=== PATIENT | male | born 1950 | race Caucasian/White ===

== ENCOUNTER 2019-04-14 21:14 | Emergency (ER) | payer MEDICARE, OTHER, SELFPAY ==
[2019-04-14 21:22] VITALS: BP 155/90; PULSE 92; RESP 22; TEMP 36.4; O2SAT 98; BMI 27.3
--- NOTE | 2019-04-14 21:23 | XRR_ITS ---
PROCEDURE INFORMATION: Exam: XR Chest, 1 View Exam date and time: 04/14/2019 9:27 PM Age: 69 years old Clinical indication: Chest pain; Additional info: Cp TECHNIQUE: Imaging protocol: XR of the chest Views: 1 view. COMPARISON: CR Ribs LEFT w PA Chest [id number] 01/10/2016 9:20 PM FINDINGS: Lungs: Unremarkable. No consolidation. Unchanged multiple tiny calcified granulomas. Pleural space: Unremarkable. No pleural effusion. No pneumothorax. Heart/Mediastinum: Unremarkable. No cardiomegaly. Bones/joints: Unremarkable. XR/XR chest 1V portable [id number] IMPRESSION: No acute findings.
--- NOTE | 2019-04-14 21:27 | ED_ITS ---
Entered by Jina Lewis, acting as scribe for Chanel Rubin MD HPI - Chest Pain General: Chief Complaint: Chest Pain Stated Complaint: chest pain Time Seen by Provider: 04/14/19 21:23 Source: patient Mode of arrival: ambulatory Limitations: no limitations History of Present Illness: HPI narrative: 69 yo m came to the er pov for chest pain. Onset was at 20:00 today. Pt states that he was at home and it hit all of a sudden. Pt states that he has chest pain, sob, pain between his shoulder blades and numbness is his hands. Pt states that he thought that it was heartburn at first but the pain never went away. complaint: chest pain and chest discomfort Onset (ago): hour(s) (2000pm) Prior episodes: Yes Onset: during exertion Pain location: substernal Pain radiation: back (between shoulder blades) Severity: moderate Quality: sharp Relieving factors: nothing Exacerbating factors: nothing Associated symptoms: Reports dyspnea, nausea and vomiting; Deny fever(s) Treatment prior to arrival: none Risk Factors: Thoracic aortic dissection risk factors: none Review of Systems General: Reports: 10 or more systems reviewed and unremarkable except in HPI and below Const: Denies: fever Eyes: Denies: change in vision ENMT: Denies: throat pain Card: Reports: chest pain, shortness of breath on exertion and shortness of breath when lying down Resp: Reports: shortness of breath GI: Reports: nausea and vomiting : Denies: painful urination Musc: Denies: neck pain Skin/Breast: Denies: rash or itching Neuro: Denies: headache Psych: Denies: anxiety Endo: Denies: excessive urination Avni/Lymph: Denies: easy bruising All/Imm: Denies: hives or acute wheezing PFSH ED PFSH: Statuses (acute, chronic, etc) shown below reflect problem list status as previously entered and may not be historically accurate Social History Smoking and tobacco status: never smoked Physical Exam Const: COMMON NORMALS: oriented x3; apparent distress GENERAL APPEARANCE: cooperative ORIENTATION/CONSCIOUSNESS: Yes awake, Yes oriented to person, Yes oriented to place and Yes oriented to time HENMT: COMMON NORMALS: external ears normal and external nose normal HEAD & SCALP: normal to inspection NOSE: external nose normal EXTERNAL EAR: Yes e xternal ears normal MOUTH: oral and palatal mucosa normal THROAT: posterior oropharynx normal Eye: COMMON NORMALS: PERRL and EOMs intact bilaterally PUPIL: Yes PERRL Neck/C-Spine: COMMON NORMALS: full ROM GENERAL: Yes trachea midline Lymph: LYMPHATIC: no lymphadenopathy noted Chest: COMMONS NORMALS: inspection of chest normal Resp: COMMON NORMALS: normal respiratory effort, no retractions and clear to auscultation bilaterally EFFORT & INSPECTION: Yes able to speak in complete sentences AUSCULTATION: clear to auscultation bilaterally, no crackles and no wheezes Cardio: COMMON NORMALS: regular rate and regular rhythm RATE: regular rate RHYTHM: regular rhythm GI: COMMON NORMALS: normal to inspection, nondistended, normoactive bowel sounds and soft to palpation AUSCULTATION: Yes normoactive bowel sounds PALPATION: Yes soft PERCUSSION: normal to percussion : COMMON NORMALS: Yes no CVA tenderness BLADDER/KIDNEY EXAM: Yes no CVA tenderness Back/Pelvis: COMMON NORMALS: no CVA tenderness Extremity: GENERAL: Yes normal exam except as noted Neuro: COMMON NORMALS: oriented x3 SENSORIUM/ORIENTATION: Yes oriented to person, Yes oriented to place and Yes oriented to time CRANIAL NERVES: Yes CN normal except as noted Psych: COMMON NORMALS: mental status grossly normal Skin: COMMON NORMALS: no rashes or lesions noted GENERAL SKIN EXAM: no rashes or lesions noted Course Vital Signs: Vital signs: Vital Signs Temperature 98.1 F 04/14/19 22:12 Pulse Rate 83 04/15/19 00:09 Respiratory Rate 12 04/15/19 00:09 Blood Pressure 150/91 04/15/19 00:09 Pulse Oximetry 94 04/15/19 00:09 MDM - Chest Pain MDM Narrative: Medical decision making narrative: 2233 patient is much more comfortable after pain medicine and nausea medicine. First troponin is within normal limits will wait for second troponin. Chest x-ray is negative, H. pylori is negative as well but I have started him on IV Pepcid. 0039 updated patient on second troponin. Is asymptomatic . I suspect he had esophageal spasm as he described lots of belching just prior to this episode and has felt very bloated. States his PCP recently put him on a medicine for acid that he takes twice a day. Unfortunately unable to see any records from primary care office and patient does not know what medication he is on so I will have him check when he gets home and if he is not on an ant acid or H2 amee needs to start Zantac OTC and follow-up with his primary care doctor. Lab Data: Attestation: I reviewed the patient's lab results. Labs: Lab Results 04/14/19 04/14/19 04/14/19 Range/Units 21:28 21:28 21:28 WBC 6.9 (4.0-10.0) 10^3/ uL RBC 5.93 H (4.1-5.3) 10^6/u L Hgb 16.3 (11.7-16.6) g/dL Hct 50.9 (42.0-52.0) % MCV 85.8 (80-94) fL MCH 27.5 L (28.0-34.0) pg MCHC 32.0 (30.0-36.0) g/dL RDW 12.9 (12.1-15.1) % Plt Count 231 (130-400) 10^3/c mm MPV 9.4 (7.4-10.4) fL Total Counted 100 (0-100) Segmented Neutroph ils 47 % Band Neutrophils 1.0 % Lymphocytes (Manua l) 40 % Monocytes (Manual) 10.0 % Absolute Monocytes 0.7 H (0.1-0.6) 10^3/c mm Eosinophils (Manua l) 2 % Absolute Eosinophi ls 0.1 (0.0-0.7) 10^3/c mm Platelet Estimate Normal (Normal) D-Dimer 0.46 (0-0.59) ug/mIFE U Sodium 136 (136-145) mmol/L Potassium 3.0 L (3.5-5.1) mmol/L Chloride 97 L (98-107) mmol/L Carbon Dioxide 28 (22-29) mmol/L Anion Gap 14.0 (5-19) BUN 18 (8-23) mg/dL Creatinine 1.2 (0.7-1.2) mg/dL GFR Calculation 60.0 L (90-130) mL/min Glucose 163 H (74-106) mg/dL Calcium 10.4 H (8.8-10.2) mg/Dl Total Bilirubin 0.4 (0.15-1.2) mg/dL AST 17 (0-40) U/L ALT 19 (0-41) U/L Alkaline Phosphata se 133 H (40-130) IU/L Troponin T Baselin e (0-15) ng/mL Troponin T 120 Min [place] (0-15) ng/mL Delta Troponin T (0-10) ABS# Total Protein 7.4 (6.6-8.7) g/dL Albumin 4.6 (3.5-5.2) g/dL Globulin 2.8 (1.3-4.6) g/dL Lipase 26 (13-60) U/L H. pylori IgG Anti body (Negative) 04/14/19 04/14/19 04/14/19 Range/Units 21:28 21:28 23:17 WBC (4.0-10.0) 10^3/ uL RBC (4.1-5.3) 10^6/u L Hgb (11.7-16.6) g/dL Hct (42.0-52.0) % MCV (80-94) fL MCH (28.0-34.0) pg MCHC (30.0-36.0) g/dL RDW (12.1-15.1) % Plt Count (130-400) 10^3/c mm MPV (7.4-10.4) fL Total Counted (0-100) Segmented Neutroph ils % Band Neutrophils % Lymphocytes (Manua l) % Monocytes (Manual) % Absolute Monocytes (0.1-0.6) 10^3/c mm Eosinophils (Manua l) % Absolute Eosinophi ls (0.0-0.7) 10^3/c mm Platelet Estimate (Normal) D-Dimer (0-0.59) ug/mIFE U Sodium (136-145) mmol/L Potassium (3.5-5.1) mmol/L Chloride (98-107) mmol/L Carbon Dioxide (22-29) mmol/L Anion Gap (5-19) BUN (8-23) mg/dL Creatinine (0.7-1.2) mg/dL GFR Calculation (90-130) mL/min Glucose (74-106) mg/dL Calcium (8.8-10.2) mg/Dl Total Bilirubin (0.15-1.2) mg/dL AST (0-40) U/L ALT (0-41) U/L Alkaline Phosphata se (40-130) IU/L Troponin T Baselin e 10 (0-15) ng/mL Troponin T 120 Min [place] 8.84 (0-15) ng/mL Delta Troponin T -1.16 L (0-10) ABS# Total Protein (6.6-8.7) g/dL Albumin (3.5-5.2) g/dL Globulin (1.3-4.6) g/dL Lipase (13-60) U/L H. pylori IgG Anti body Negative (Negative) Imaging Data^: CXR: Radiologist's impression: [address] [place] [address] XRay Report Signed Patient: Radames Sherman #: [id number] : 1950Acct#:[id number] Age/Sex: 69 / MADM Date: 04/14/19 Loc: ERRoom/Bed: Attending Dr: Ordering Provider/Ordering MD: Chanel Rubin MD Date of Service: 04/14/19 Procedure(s): XR chest 1V portable [id number] Accession Number(s): [id number] Report Number: [id number] PROCEDURE INFORMATION: Exam: XR Chest, 1 View Exam date and time: 04/14/2019 9:27 PM Age: 69 years old Clinical indication: Chest pain; Additional info: Cp TECHNIQUE: Imaging protocol: XR of the chest Views: 1 view. COMPARISON: CR Ribs LEFT w PA Chest [id number] 01/10/2016 9:20 PM FINDINGS: Lungs: Unremarkable. No consolidation. Unchanged multiple tiny calcified granulomas. Pleural space: Unremarkable. No pleural effusion. No pneumothorax. Heart/Mediastinum: Unremarkable. No cardiomegaly. Bones/joints: Unremarkable. XR/XR chest 1V portable [id number] IMPRESSION: No acute findings. Dictated By:Kirstin Vergara Signed By:Eugenio Vergara Date/Time:04/14/19 1321 EKG Data^: EKG 1: EKG interpretation date: 04/14/19 EKG interpretation time: 21:23 Prior EKG tracings: not available for review Interpretation: Sinus rhythm rate 94 with PVCs. Baseline artifact secondary to patient distress I was present while EKG was being performed. There is no acute ST elevation. EKG 2: Attestation: I personally reviewed and interpreted this EKG as follows: EKG interpretation date: 04/14/19 EKG interpretation time: 23:34 Interpretation: Normal sinus rhythm rate [address] elevation Discharge Plan Discharge Patient Disposition: Home, Self-Care Clinical Impression: Atypical chest pain, Gastritis Condition: Stable Discharge Orders: Discharge Order (Routine); Ordered 04/15/19 Ordered By: Chanel Rubin Referrals: Narinder Tolbert, [Family Provider] - Discharge Diet: Usual diet Discharge Activity: Resume usual activity Patient Instructions: Chest Pain (ED), Diet for Ulcers and Gastritis (ED), Eso phageal Spasm (ED) Activity Restrictions/Additional Instructions: Contact your primary care doctor on Wednesday for follow-up appointment. Let them know that you are in the emergency department. You need to confirm that you are taking a medicine for stomach acid, if you are not start taking Zantac 300 mg twice a day(once in the morning and once at night). Your doctor may also want to do further testing since it sounds like he may have had esophageal spasm at this ED visit. Return to the emergency department if worse at any time. Coding Level of Care Code ED District Superintendent for Chg Fwd Exam Problem Focused The documentation recorded by the Joshua valladares Stephanie Lyn, accurately reflects the service I personally performed and the decisions made by me, Chanel Rubin MD
--- NOTE | 2019-04-14 21:30 | ECG_ITS ---
Measurements Intervals [place] Rate: 94 P: 58 [place]: 161 QRS: 49 QRSD: 88 T: 33 QT: 348 QTc: 435 SINUS RHYTHM WITH OCCASIONAL VENTRICULAR PREMATURE COMPLEXES WITH OCCASIONAL SUP SUPRAVENTRICULAR PREMATURE COMPLEXES INTERPRETATION BASED ON A DEFAULT AGE OF 40 YEARS No previous ECG available for comparison Electronically Signed On 04-15-2019 16:44:08 CERTIFIED CORPORATE TRAVEL EXECUTIVE by Dulce Meza M.D. [id number] f
[2019-04-14 21:32] VITALS: BP 138/113; PULSE 86; RESP 24; O2SAT 99
[2019-04-14 21:38] LABS: Hematocrit 50.9 % (42.0-52.0); Hemoglobin 16.3 g/dL (11.7-16.6); Mean Corpuscular Hemoglobin 27.5 pg (28.0-34.0); Mean Corpuscular Volume 85.8 fL (80-94); Mean Platelet Volume 9.4 fL (7.4-10.4); Platelet Count 231 10^3/cmm (130-400); Red Blood Count 5.93 10^6/uL (4.1-5.3); Red Cell Distribution Width 12.9 % (12.1-15.1); White Blood Count 6.9 10^3/uL (4.0-10.0)
[2019-04-14] MEDS: aspirin 81 mg Chew Tablet 324 MG PO (21:44)
[2019-04-14] MEDS: famotidine 20 mg/2 mL INJ IVP (21:44)
[2019-04-14] MEDS: ondansetron 2 mg/ML SDV 2 mL 4 MG IVP (21:44)
[2019-04-14 21:53] LABS: Alanine Aminotransferase 19 U/L (0-41); Albumin Level 4.6 g/dL (3.5-5.2); Alkaline Phosphatase 133 IU/L (40-130); Aspartate Amino Transferase 17 U/L (0-40); Blood Urea Nitrogen 18 mg/dL (8-23); Calcium 10.4 mg/Dl (8.8-10.2); Carbon Dioxide 28 mmol/L (22-29); Chloride 97 mmol/L (98-107); Globulin 2.8 g/dL (1.3-4.6); Glucose 163 mg/dL (74-106); Lipase 26 U/L (13-60); Sodium 136 mmol/L (136-145); Total Bilirubin 0.4 mg/dL (0.15-1.2); Total Protein 7.4 g/dL (6.6-8.7)
[2019-04-14 21:54] LABS: D Dimer 0.46 ug/mIFEU (0-0.59)
[2019-04-14 21:55] LABS: H. Pylori IgG Antibody Negative (Negative)
[2019-04-14 22:03] VITALS: RESP 18
[2019-04-14] MEDS: morphine 4 mg/mL SDV 1 mL IVP (22:03)
[2019-04-14 22:12] VITALS: BP 180/92; PULSE 63; RESP 16; TEMP 36.7
[2019-04-14 22:12] LABS: Troponin(5th) Baseline 10 ng/mL (0-15)
[2019-04-14 22:26] LABS: Absolute Eosinophils 0.1 10^3/cmm (0.0-0.7); Absolute Segmented Neutrophil 3.2 10/cmm (1.6-7.1); Band Neutrophils Absolute 0.1 10^3/cmm (0.0-1.2); Eosinophils 2 %; Lymphocytes 40 %; Monocytes Absolute 0.7 10^3/cmm (0.1-0.6); Segmented Neutrophils 47 %; Total Cells Counted 100 (0-100)
[2019-04-14 22:27] LABS: Platelet Estimate Normal (Normal)
[2019-04-14 23:18] VITALS: BP 172/89; PULSE 75; RESP 13
--- NOTE | 2019-04-14 23:30 | ECG_ITS ---
Measurements Intervals [place] Rate: 61 P: 43 [place]: 170 QRS: 45 QRSD: 93 T: 12 QT: 410 QTc: 416 SINUS RHYTHM No previous ECG available for comparison Electronically Signed On 04-15-2019 16:51:15 PRINCIPAL LAW CLERK by Dulce Meza M.D. [id number]
[2019-04-14 23:45] LABS: Troponin 5 2HR 8.84 ng/mL (0-15)
[2019-04-15] LABS: Troponin 5 2HR Delta -1.16 ABS# (0-10)
[2019-04-15 00:09] VITALS: BP 150/91; PULSE 83; RESP 12; O2SAT 94
[2019-04-15 00:55] VITALS: BP 149/92; PULSE 96; RESP 18; O2SAT 95
== END 2019-04-15 00:56 | disposition home or self-care (01) ==
PROVIDERS: Emergency Provider Emergency Medicine; Family Provider Family Medicine
DX: R07.9 Chest pain, unspecified (principal); K29.70 Gastritis, unspecified, without bleeding
CPT/HCPCS: 71045; 80053; 83690; 84484; 85007; 85027; 85378; 86677; 93005; 96374; 96375; 99282; J2270; J2405; J3490

== ENCOUNTER 2019-04-17 16:30 | Emergency (ER) | payer MEDICARE, OTHER, SELFPAY ==
[2019-04-17 16:42] VITALS: BP 196/106; PULSE 70; RESP 22; TEMP 36.8; O2SAT 96; BMI 28.1
--- NOTE | 2019-04-17 17:34 | XR_ITS ---
WS: [id number] Portable AP upright chest, 04/17/2019 Clinical Data: chest pain Comparison: Portable chest, 04/14/2019. Findings: No nodules, masses or effusions are seen. The heart is normal. The pulmonary vascularity is not remarkable. There is a calcified granuloma in the left hilum. The aortic arch and descending aor ta show tortuosity. No pneumonia or pneumothorax is seen. XR/XR chest 1V portable [id number] Impression: Atherosclerosis.
--- NOTE | 2019-04-17 17:35 | ECG_ITS ---
Measurements Intervals [place] Rate: 59 P: 53 [place]: 165 QRS: 32 QRSD: 85 T: 52 QT: 383 QTc: 381 SINUS BRADYCARDIA Compared to ECG 04/14/2019 23:29:34 Sinus rhythm no longer present Electronically Signed On 04-17-2019 19:28:54 PERSONNEL SECURITY ASSISTANT by Dulce Meza M.D. [id number] f
[2019-04-17 18:30] LABS: Basophils % 0.3 %; Eosinophils # 0.2 10^3/uL (0.0-0.8); Eosinophils % 1.4 %; Hematocrit 52.7 % (42.0-52.0); Hemoglobin 17.2 g/dL (11.7-16.6); Lymphocytes # 1.1 10^3/uL (0.8-4.8); Lymphocytes % 10.5 %; Mean Corpuscular HGB Conc 32.6 g/dL (30.0-36.0); Mean Corpuscular Hemoglobin 28.6 pg (28.0-34.0); Mean Corpuscular Volume 87.5 fL (80-94); Mean Platelet Volume 9.7 fL (7.4-10.4); Monocytes % 9.3 %; Neutrophils # 8.2 10^3/uL (1.8-7.7); Neutrophils % 78.2 %; Nucleated Red Blood Cells % 0 %; Platelet Count 232 10^3/cmm (130-400); Red Blood Count 6.02 10^6/uL (4.1-5.3); Red Cell Distribution Width 12.9 % (12.1-15.1); White Blood Count 10.5 10^3/uL (4.0-10.0)
[2019-04-17 18:52] LABS: Troponin(5th) Baseline 9 ng/mL (0-15)
[2019-04-17 18:55] LABS: Alanine Aminotransferase 15 U/L (0-41); Albumin Level 4.6 g/dL (3.5-5.2); Alkaline Phosphatase 117 IU/L (40-130); Anion Gap 17.9 (5-19); Aspartate Amino Transferase 13 U/L (0-40); Blood Urea Nitrogen 16 mg/dL (8-23); Calcium 10.4 mg/Dl (8.8-10.2); Carbon Dioxide 28 mmol/L (22-29); Chloride 93 mmol/L (98-107); Glucose 155 mg/dL (74-106); Potassium 2.9 mmol/L (3.5-5.1); Sodium 136 mmol/L (136-145); Total Bilirubin 0.9 mg/dL (0.15-1.2); Total Protein 7.6 g/dL (6.6-8.7)
--- NOTE | 2019-04-17 19:35 | ECG_ITS ---
Measurements Intervals [place] Rate: 69 P: 41 [place]: 166 QRS: 32 QRSD: 90 T: 49 QT: 303 QTc: 326 SINUS RHYTHM NONSPECIFIC T-WAVE ABNORMALITY Compared to ECG 04/17/2019 16:40:19 T-wave abnormality now present Sinus bradycardia no longer present Electronically Signed On 04-18-2019 13:42:24 PROFESSOR OF PSYCHIATRY by Danuta Crystal M.D. [id number] f
[2019-04-17 20:47] LABS: Troponin 5 2HR 9.59 ng/mL (0-15); Troponin 5 2HR Delta 0.59 ABS# (0-10)
--- NOTE | 2019-04-17 21:43 | US_ITS ---
WS: [id number] ULTRASOUND ABDOMEN LIMITED CLINICAL INFORMATION: abd pain COMPARISON: None. FINDINGS: Liver Size: Normal. Craniocaudal length: 14.7 cm. Echogenicity: Normal. Surface nodularity: None. Mass (size and location): None. Bile ducts Intrahepatic ducts: Normal. Common bile duct diameter: 3.4 mm. Gallbladder Sludge present Gallstones: None. Gallbladder sludge: Present Gallbladder wall thickening: None. Pericholecystic fluid: None. Sonographic Camargo sign: Absent. Pancreas Normal as visualized. Right kidney: Normal. Hydronephrosis: None. Size: 11.3 cm x 5.2 cm x 5.5 cm. Abdominal aorta and IVC Visualized portions are normal. Ascites: None. US/US gall bladder [id number] IMPRESSION: 1. Liver is normal. 2. Gallbladder sludge present. No pericholecystic fluid or gallbladder wall th ickening. 3. Normal common bile duct. 4. Normal right kidney.
--- NOTE | 2019-04-17 21:46 | ED_ITS ---
HPI - Chest Pain General: Chief Complaint: Chest Pain Stated Complaint: Chest Pain Time Seen by Provider: 04/17/19 21:36 Source: patient Mode of arrival: ambulatory Limitations: no limitations History of Present Illness: HPI narrative: 69-year-old male who states that he is been having right upper quadrant abdominal pain along with chest pain for like a week. Patient seen here last week and had normal studies. Patient seen by his primary care doctor today and is set up for a HIDA scan as they believe it is in his gallbladder he states his pain worsened tonight. States pain is now a 9 out of 10. Denies any shortness of breath. He denies any worsening improving factors. Associated symptoms: Reports abdominal pain; Deny dyspnea, fever(s), nausea or vomiting Review of Systems Const: Denies: fever or chills Eyes: Denies: change in vision ENMT: Denies: throat pain or mouth pain Card: Reports: chest pain Resp: Denies: shortness of breath GI: Reports: abdominal pain; Denies: nausea, vomiting or diarrhea Musc: Denies: back pain or joint pain Skin/Breast: Denies: rash Neuro: Denies: headache or behavioral changes Psych: Denies: depression Endo: Denies: excessive urination Avni/Lymph: Denies: easy bruising All/Imm: Denies: hives PFSH ED PFSH: Statuses (acute, chronic, etc) shown below reflect problem list status as previously entered and may not be historically accurate Social History Smoking and tobacco status: never smoked Physical Exam Const: COMMON NORMALS: no apparent distress and healthy appearing HENMT: COMMON NORMALS: normocephalic and external nose normal HEAD & SCALP: normocephalic NOSE: external nose normal and no nasal discharge (nasal dischage) Eye: COMMON NORMALS: PERRL PUPIL: Yes PERRL Neck/C-Spine: COMMON NORMALS: full ROM and no lymphadenopathy Chest: COMMONS NORMALS: inspection of chest normal Resp: COMMON NORMALS: normal respiratory effort and clear to auscultation bilaterally AUSCULTATION: clear to auscultation bilaterally Cardio: COMMON NORMALS: regular rate and regular rhythm RATE: regular rate RHYTHM: regular rhythm GI: COMMON NORMALS: soft to palpation PALPATION: Yes soft OTHER: ruq tenderness Extremity: COMMON NORMALS: normal to inspection, full ROM and normal capillary refill Psych: COMMON NORMALS: mental status grossly normal and cooperative Skin: COMMON NORMALS: no rashes or lesions noted GENERAL SKIN EXAM: no rashes or lesions noted Course Vital Signs: Vital signs: Vital Signs Temperature 98.2 F 04/17/19 16:42 Pulse Rate 81 04/17/19 23:33 Respiratory Rate 16 04/17/19 23:33 Blood Pressure 185/98 04/17/19 23:33 Pulse Oximetry 96 04/17/19 23:33 MDM - Chest Pain MDM Narrative: Medical decision making narrative: Patient presents here with right upper quadrant pain has a history of gallbladder pain in the past. He is getting set up for a HIDA scan by his PCP. Ultrasound here showed no signs of cholecystitis. Patient's lab work here is normal. Patient has no signs of cardiac cause. Patient is stable for discharge and is to follow-up with PCP in 1 to 2 days and return if worsening. Lab Data: Labs: Lab Results 04/17/19 04/17/19 04/17/19 Range/Units 18:12 18:12 18:12 WBC 10.5 H (4.0-10.0) 10^3/ uL RBC 6.02 H (4.1-5.3) 10^6/u L Hgb 17.2 H (11.7-16.6) g/dL Hct 52.7 H (42.0-52.0) % MCV 87.5 (80-94) fL MCH 28.6 (28.0-34.0) pg MCHC 32.6 (30.0-36.0) g/dL RDW 12.9 (12.1-15.1) % Plt Count 232 (130-400) 10^3/c mm MPV 9.7 (7.4-10.4) fL Neut % (Auto) 78.2 % Lymph % (Auto) 10.5 % [place]linger % (Auto) 9.3 % Eos % (Auto) 1.4 % Baso % (Auto) 0.3 % Neut # (Auto) 8.2 H (1.8-7.7) 10^3/u L Lymph # (Auto) 1.1 (0.8-4.8) 10^3/u L [place]linger # (Auto) 1.0 H (0.2-0.9) 10^3/u L Eos # (Auto) 0.2 (0.0-0.8) 10^3/u L Baso # (Auto) 0.0 (0.0-0.1) 10^3/u L Nucleated RBC % (a uto) 0 % Nucleated RBCs # 0.0 /100WBC Sodium 136 (136-145) mmol/L Potassium 2.9 L (3.5-5.1) mmol/L Chloride 93 L (98-107) mmol/L Carbon Dioxide 28 (22-29) mmol/L Anion Gap 17.9 (5-19) BUN 16 (8-23) mg/dL Creatinine 1.2 (0.7-1.2) mg/dL GFR Calculation 60.0 L (90-130) mL/min Glucose 155 H (74-106) mg/dL Calcium 10.4 H (8.8-10.2) mg/Dl Total Bilirubin 0.9 (0.15-1.2) mg/dL AST 13 (0-40) U/L ALT 15 (0-41) U/L Alkaline Phosphata se 117 (40-130) IU/L Troponin T Baselin e 9 (0-15) ng/mL Troponin T 120 Min archana (0-15) ng/mL Delta Troponin T (0-10) ABS# Total Protein 7.6 (6.6-8.7) g/dL Albumin 4.6 (3.5-5.2) g/dL Globulin 3.0 (1.3-4.6) g/dL Lipase (13-60) U/L 04/17/19 04/17/19 Range/Units 19:54 19:54 WBC (4.0-10.0) 10^3/ uL RBC (4.1-5.3) 10^6/u L Hgb (11.7-16.6) g/dL Hct (42.0-52.0) % MCV (80-94) fL MCH (28.0-34.0) pg MCHC (30.0-36.0) g/dL RDW (12.1-15.1) % Plt Count (130-400) 10^3/c mm MPV (7.4-10.4) fL Neut % (Auto) % Lymph % (Auto) % [place]linger % (Auto) % Eos % (Auto) % Baso % (Auto) % Neut # (Auto) (1.8-7.7) 10^3/u L Lymph # (Auto) (0.8-4.8) 10^3/u L Bollinger # (Auto) (0.2-0.9) 10^3/u L Eos # (Auto) (0.0-0.8) 10^3/u L Baso # (Auto) (0.0-0.1) 10^3/u L Nucleated RBC % (a uto) % Nucleated RBCs # /100WBC Sodium (136-145) mmol/L Potassium (3.5-5.1) mmol/L Chloride (98-107) mmol/L Carbon Dioxide (22-29) mmol/L Anion Gap (5-19) BUN (8-23) mg/dL Creatinine (0.7-1.2) mg/dL GFR Calculation (90-130) mL/min Glucose (74-106) mg/dL Calcium (8.8-10.2) mg/Dl Total Bilirubin (0.15-1.2) mg/dL AST (0-40) U/L ALT (0-41) U/L Alkaline Phosphata se (40-130) IU/L Troponin T Baselin e (0-15) ng/mL Troponin T 120 Min archana 9.59 (0-15) ng/mL Delta Troponin T 0.59 (0-10) ABS# Total Protein (6.6-8.7) g/dL Albumin (3.5-5.2) g/dL Globulin (1.3-4.6) g/dL Lipase 15 (13-60) U/L Imaging Data^: CXR: Attestation: I personally reviewed and interpreted this imaging study as follows: My impression: no acute abnormality EKG Data^: EKG 1: Attestation: I personally reviewed and interpreted this EKG as follows: EKG interpretation date: 04/17/19 EKG interpretation time: 16:40 Interpretation: Sinus bradycardia heart rate [address] or T wave abnormalities QRS 85 QTc 382 EKG 2: Attestation: I personally reviewed and interpreted this EKG as follows: EKG interpretation date: 04/17/19 EKG interpretation time: 19:18 Interpretation: Normal sinus rhythm heart rate [address] or T wave abnormalities QRS 90 QTC 322 unchanged from previous EKG Discharge Plan Discharge Patient Disposition: Home Health Service Clinical Impression: Atypical chest pain Abdominal pain Qualifiers: Abdominal location: right upper quadrant Qualified Code(s): R10.11 - Right upper quadrant pain Condition: Stable Prescriptions: New Zofran 4 mg tablet 4 mg PO QID PRN (Reason: nausea and vomiting) Qty: 14 RF: 0 [place] 5-325 mg tablet 1 tab PO Q6H PRN (Reason: pain) Qty: 14 RF: 0 Discharge Orders: Discharge Order (Routine); Ordered 04/17/19 Ordered By: Adria Bray Referrals: Narinder Tolbert DO [Family Provider] - Discharge Diet: Advance as tolerated Discharge Activity: Resume usual activity Patient Instructions: Abdominal Pain (ED) Discharge Date/Time: 04/17/19 23:43 Coding Level of Care Code ED Casting House Laborer for Chg Fwd Exam Problem Focused
[2019-04-17 21:49] VITALS: BP 191/86; BP 191/97; PULSE 85; PULSE 86; RESP 14; O2SAT 94; O2SAT 95
[2019-04-17 22:25] VITALS: RESP 16; O2SAT 96
[2019-04-17] MEDS: morphine 4 mg/mL SDV 1 mL IM (22:25)
[2019-04-17 22:35] VITALS: BP 172/93; PULSE 85; RESP 14; O2SAT 97
--- NOTE | 2019-04-17 22:42 | PC.NURSE ---
ULTRASOUND IN ROOM
[2019-04-17 23:04] VITALS: BP 158/96; PULSE 87; PULSE 89; RESP 16; O2SAT 94
[2019-04-17 23:22] LABS: Lipase 15 U/L (13-60)
[2019-04-17] MEDS: ondansetron 2 mg/ML SDV 2 mL 4 MG IM (23:24)
[2019-04-17 23:33] VITALS: BP 185/98; PULSE 81; RESP 16; O2SAT 96
--- NOTE | 2019-04-17 23:35 | ECG_ITS ---
Measurements Intervals [place] Rate: 80 P: 41 [place]: 148 QRS: 34 QRSD: 90 T: 29 QT: 305 QTc: 354 SINUS RHYTHM NONSPECIFIC T-WAVE ABNORMALITY Compared to ECG 04/17/2019 16:40:19 T-wave abnormality now present Sinus bradycardia no longer present Electronically Signed On 04-18-2019 13:38:39 NEEDLE BOARD REPAIRER by Danuta Crystal M.D. [id number] f
[2019-04-17 23:46] LABS: Troponin 5 6HR 9.32 ng/L (0-15); Troponin 5 6HR Delta 0.32 ng/L (0-12)
== END 2019-04-17 23:43 | disposition home health service (06) ==
PROVIDERS: Family Medicine; Emergency Provider Emergency Medicine; Family Provider Family Medicine
DX: R07.89 Other chest pain (principal); R10.11 Right upper quadrant pain
CPT/HCPCS: 36415; 71045; 76705; 80053; 83690; 84484; 85025; 93005; 96372; 99282; J2270; J2405

== ENCOUNTER 2020-11-01 14:49 | Emergency (ER) | payer MEDICARE, SELFPAY ==
[2020-11-01 16:53] VITALS: BP 157/84; PULSE 59; RESP 14; TEMP 36.7; O2SAT 96; BMI 28.8
[2020-11-01 18:46] LABS: Basophils # 0.1 10^3/uL (0.0-0.1); Basophils % 0.9 %; Eosinophils # 0.3 10^3/uL (0.0-0.8); Eosinophils % 4.3 %; Hematocrit 51.2 % (42.0-52.0); Hemoglobin 16.7 g/dL (11.7-16.6); Lymphocytes # 1.7 10^3/uL (0.8-4.8); Lymphocytes % 29.7 %; Mean Corpuscular HGB Conc 32.6 g/dL (30.0-36.0); Mean Corpuscular Hemoglobin 28.8 pg (28.0-34.0); Mean Corpuscular Volume 88.4 fL (80-94); Mean Platelet Volume 9.3 fL (7.4-10.4); Monocytes # 0.6 10^3/uL (0.2-0.9); Monocytes % 10.2 %; Neutrophils # 3.15 10^3/uL (1.8-7.7); Neutrophils % 54.7 %; Nucleated Red Blood Cells % 0 %; Platelet Count 191 10^3/cmm (130-400); Red Blood Count 5.79 10^6/uL (4.1-5.3); White Blood Count 5.8 10^3/uL (4.0-10.0)
[2020-11-01 19:01] LABS: Alanine Aminotransferase 16 U/L (0-41); Albumin Level 4.1 g/dL (3.5-5.2); Alkaline Phosphatase 94 IU/L (40-130); Anion Gap 11.8 (5-19); Aspartate Amino Transferase 12 U/L (0-40); Blood Urea Nitrogen 15 mg/dL (8-23); Calcium 8.8 mg/dL (8.5-10.5); Carbon Dioxide 30 mmol/L (22-29); Chloride 102 mmol/L (98-107); Globulin 2.7 g/dL (1.3-4.6); Glomerular Filtration Rate 73.9 mL/min (90-130); Glucose 100 mg/dL (65-115); Osmolality Calculated 291 mOsm/kg (285-295); Potassium 3.8 mmol/L (3.5-5.1); Sodium 140 mmol/L (136-145); Total Bilirubin 0.4 mg/dL (0.15-1.2); Total Protein 6.8 g/dL (6.6-8.7)
== END 2020-11-01 21:43 | disposition left against medical advice (07) ==
PROVIDERS: Nurse Practitioner Family; Emergency Provider Family Medicine; PCP Family Medicine
DX: R47.89 Other speech disturbances (principal); R51.9 Headache, unspecified; Z53.21 Procedure and treatment not carried out due to patient leaving prior to being seen by health care provider
CPT/HCPCS: 80053; 85025

== ENCOUNTER 2020-11-27 06:00 | Outpatient (RCR) | payer MEDICARE, OTHER, SELFPAY | END 2020-12-03 23:59 | disposition home or self-care (01) | LOC: SST 06:00 | PROVIDERS: PCP Family Medicine; Referring Provider Family Medicine; Visit Provider Family Medicine | DX: I69.922 Dysarthria following unspecified cerebrovascular disease (principal) | CPT/HCPCS: 92522 ==

== ENCOUNTER 2020-12-04 06:00 | Outpatient (RCR) | payer MEDICARE, OTHER, SELFPAY | END 2021-01-02 23:59 | disposition home or self-care (01) | LOC: SST 06:00 | PROVIDERS: PCP Family Medicine; Referring Provider Family Medicine; Visit Provider Family Medicine | DX: I69.922 Dysarthria following unspecified cerebrovascular disease (principal) | CPT/HCPCS: 92507 ==

== ENCOUNTER 2021-05-30 06:00 | Outpatient (RCR) | payer MEDICARE, OTHER, SELFPAY | END 2021-06-02 23:59 | disposition home or self-care (01) | LOC: SPT 06:00 | PROVIDERS: PCP Family Medicine; Referring Provider Orthopaedic Surgery; Visit Provider Orthopaedic Surgery | DX: Z47.89 Encounter for other orthopedic aftercare (principal) | CPT/HCPCS: 97162 ==

== ENCOUNTER 2021-06-03 06:00 | Outpatient (RCR) | payer MEDICARE, OTHER, SELFPAY | END 2021-07-03 23:59 | disposition home or self-care (01) | LOC: SPT 06:00 | PROVIDERS: PCP Family Medicine; Referring Provider Orthopaedic Surgery; Visit Provider Orthopaedic Surgery | DX: Z47.89 Encounter for other orthopedic aftercare (principal); Z47.2 Encounter for removal of internal fixation device | CPT/HCPCS: 97110; 97140 ==

== ENCOUNTER 2021-07-04 06:00 | Outpatient (RCR) | payer MEDICARE, OTHER, SELFPAY | END 2021-07-17 23:59 | disposition home or self-care (01) | LOC: SPT 06:00 | PROVIDERS: PCP Family Medicine; Referring Provider Orthopaedic Surgery; Visit Provider Orthopaedic Surgery | DX: Z47.89 Encounter for other orthopedic aftercare (principal); Z47.2 Encounter for removal of internal fixation device | CPT/HCPCS: 97110 ==

== ENCOUNTER 2021-08-19 06:00 | Outpatient (RCR) | payer MEDICARE, SELFPAY | END 2021-09-02 23:59 | disposition home or self-care (01) | LOC: SPT 06:00 | PROVIDERS: PCP Family Medicine; Referring Provider Orthopaedic Surgery; Visit Provider Orthopaedic Surgery | DX: Z47.89 Encounter for other orthopedic aftercare (principal); M75.01 Adhesive capsulitis of right shoulder | CPT/HCPCS: 97110; 97150; 97161 ==

== ENCOUNTER 2021-09-03 06:00 | Outpatient (RCR) | payer MEDICARE, SELFPAY | END 2021-10-02 23:59 | disposition home or self-care (01) | LOC: SPT 06:00 | PROVIDERS: PCP Family Medicine; Referring Provider Orthopaedic Surgery; Visit Provider Orthopaedic Surgery | DX: M75.01 Adhesive capsulitis of right shoulder (principal) | CPT/HCPCS: 97110 ==

== ENCOUNTER → 2022-01-27 08:36 | Outpatient (BNVA) | payer MEDICARE, SELFPAY | PROVIDERS: PCP Family Medicine; Visit Provider Family Medicine | DX: Z00.00 Encounter for general adult medical examination without abnormal findings (principal); I10 Essential (primary) hypertension; Z13.6 Encounter for screening for cardiovascular disorders; N40.0 Benign prostatic hyperplasia without lower urinary tract symptoms; F41.9 Anxiety disorder, unspecified; Z23 Encounter for immunization | CPT/HCPCS: 80053; 80061 ==

== ENCOUNTER → 2022-03-18 14:24 | Outpatient (BNVA) | payer MEDICARE, SELFPAY | PROVIDERS: PCP Family Medicine; Visit Provider Family Medicine | DX: Z12.5 Encounter for screening for malignant neoplasm of prostate (principal); N40.0 Benign prostatic hyperplasia without lower urinary tract symptoms | CPT/HCPCS: 84153 ==

== ENCOUNTER → 2022-05-11 07:32 | Outpatient (BNVA) | payer MEDICARE, SELFPAY | PROVIDERS: PCP Family Medicine; Visit Provider Family Medicine | DX: R97.20 Elevated prostate specific antigen [PSA] (principal) | CPT/HCPCS: 84153; G0103 ==

== ENCOUNTER → 2022-12-15 13:00 | Outpatient (BNVA) | payer MEDICARE, SELFPAY | PROVIDERS: PCP Family Medicine; Visit Provider Family Medicine | DX: N40.0 Benign prostatic hyperplasia without lower urinary tract symptoms (principal) | CPT/HCPCS: 84153 ==

== ENCOUNTER 2023-03-01 15:17 | Outpatient (CLI) | payer MEDICARE, SELFPAY ==
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
== END 2023-03-01 15:18 | disposition home or self-care (01) ==
LOC: RAD 15:18
PROVIDERS: PCP Family Medicine; Visit Provider Family Medicine
DX: M53.3 Sacrococcygeal disorders, not elsewhere classified (principal); M47.898 Other spondylosis, sacral and sacrococcygeal region
CPT/HCPCS: 72220

== ENCOUNTER 2023-07-09 09:48 | Emergency (ER) | payer MEDICARE, SELFPAY ==
[2023-07-09 10:31] VITALS: BP 152/78; PULSE 72; RESP 18; TEMP 36.7; O2SAT 97
--- NOTE | 2023-07-09 10:38 | W.ED.WOUNDLC ---
HPI - Wound/Laceration General: Chief Complaint: Wound/Laceration Stated Complaint: Lac to right hand Time Seen by Provider: 07/09/23 10:37 History of Present Illness: 73-year-old male patient comes in today for injury to the right dorsal hand. Patient reports that he had a cow that pushed him up against a fence panel when he went to give it a shot. Patient received a skin shear incident to the dorsal right hand. Patient has good range of motion of the hand. Patient reports that the has moved the skin back into place to the dorsal hand. Patient cannot recall his last tetanus. Patient does take aspirin daily. Review of Systems General: Reports: 10 or more systems reviewed and unremarkable except in HPI and below Skin/Breast: Reports: new lesions PFSH ED PFSH: Social History Smoking and tobacco/nicotine status: never used tobacco/nicotine Physical Exam Const: COMMON NORMALS: alert HENMT: COMMON NORMALS: normocephalic HEAD & SCALP: normocephalic Neck/C-Spine: COMMON NORMALS: full ROM Chest: COMMONS NORMALS: normal inspection of the chest Resp: COMMON NORMALS: normal respiratory effort Cardio: COMMON NORMALS: regular rate RATE: regular rate Back/Pelvis: COMMON NORMALS: thoracic and lumbar spine normal to inspection Extremity: RIGHT UPPER EXTREMITY: Yes hand & digits (Ecchymosis and skin tear dorsal hand) Neuro: SENSORIUM/ORIENTATION: Yes alert Skin: TRAUMA: laceration (Irregular skin tear dorsal right hand) flap Course Vital Signs: Vital signs: Vital Signs Temperature 98.1 F 07/09/23 10:31 Pulse Rate 72 07/09/23 10:31 Respiratory Rate 18 07/09/23 10:31 Blood Pressure 152/78 07/09/23 10:31 Pulse Oximetry 97 07/09/23 10:31 Oxygen Delivery Me thod Room Air 07/09/23 10:31 MDM - Wound/Laceration Medical Decision Making 73-year-old male patient comes in today with a irregular skin tear to the dorsal right hand. On exam patient has a flap that has been well-approximated by patient. Patient has normal range of motion of the hand. No foreign body is noted. No fracture is obvious. Differential diagnosis includes fracture, foreign body, skin tear, need for prophylaxis tetanus, need for prophylaxis antibiotics. Wound was cleaned with saline and skin flap was maintained in place. Patient was recommended to keep the wound clean and dry. Activity as tolerated. Follow-up with primary care in 1 week. All radiology interpretation(s) finalized by discharge Discharge Plan Discharge Patient Disposition: Home Clinical Impression: Avulsion of skin Condition: Stable Prescriptions: New amoxicillin-pot clavulanate 875-125 mg tablet 1 tab PO BID Qty: 14 0RF No Action alprazolam 0.25 mg tablet 0.25 mg PO BID Qty: 60 5RF atorvastatin 40 mg tablet 40 mg PO DAILY Qty: 90 3RF tamsulosin 0.4 mg capsule 0.4 mg PO DAILY Qty: 90 3RF hydrochlorothiazide 25 mg tablet 25 mg PO DAILY Qty: 90 3RF amlodipine 5 mg tablet 5 mg PO DAILY carvedilol 3.125 mg tablet 3.125 mg PO BID losartan 100 mg tablet 100 mg PO DAILY finasteride 5 mg tablet 5 mg PO DAILY Cialis 10 mg tablet 10 - 20 mg PO .EVERY 72 HOURS PRN (Reason: Erectile Dysfunction) escitalopram oxalate 20 mg tablet 20 mg PO DAILY Discharge Orders: Discharge ED (Routine); Ordered 07/09/23 Ordered By: Cortez Hastings Referrals: Narinder Tolbert DO [Primary Care Provider] - Discharge Diet: Usual diet Discharge Activity: Increase activity as tolerated Patient Instructions: Skin Avulsion (ED) Activity Restrictions/Additional Instructions: Keep wound clean and dry. Keep the wound clean and dry as much as possible. Is very important keep that wound dry for the next 48 hours. After that you can wash the wound gently with mild soap and water pat dry and recover for skin protection. Follow-up with primary care in 3 to 5 days for recheck. Return to ED for worsening symptoms such as increased pain and swelling, fever greater than 100.4, inability to hold fluids down. Coding Level of Care Code ED Program Manager Environmental Planning for Nenita Ortiz
--- NOTE | 2023-07-09 10:42 | XR_ITS ---
WS: [id number] Examination: XR hand RT min 3V* [id number] Reason for Exam: injury Date: July 09, 2023 Comparison: None. Findings: Dorsally there is soft tissue swelling and suspected injury. The bone density is maintained with mild arthritic changes at the distal interphalangeal joints. On the lateral film there is a bone density identified dorsally. A small chip fracture at a mid carpa l metacarpal joint is suspected No dislocation is identified. Impression: There is dorsal soft tissue swelling with questionable chip fracture involving a mid carpal metacarpa l joint. This is not clearly identified. If further evaluation is needed clinically a CT would be of benefit.
--- NOTE | 2023-07-09 10:55 | PC.PHAR ---
xray in room-medications entered from what ext med history shows-will try again to go in room when xray gone to verify with pt
[2023-07-09] MEDS: tetanus-dipt-pertussis 0.5 mL SDV IM (12:00)
[2023-07-09] MEDS: amoxicillin-clav 875-125 mg Tablet 1 TAB PO (12:00)
[2023-07-09 12:06] VITALS: BP 148/79; PULSE 69; RESP 16; TEMP 36.7; O2SAT 98
== END 2023-07-09 12:08 | disposition home or self-care (01) ==
PROVIDERS: Emergency Provider Nurse Practitioner Family; PCP Family Medicine
DX: S61.411A Laceration without foreign body of right hand, initial encounter (principal); W55.22XA Struck by cow, initial encounter; Z23 Encounter for immunization
CPT/HCPCS: 73130; 90715; 99283

== ENCOUNTER 2023-08-16 12:00 | Outpatient (CLI) | payer MEDICARE, SELFPAY | END 2023-08-16 12:01 | disposition home or self-care (01) | LOC: SLEEP 08-17 08:15 | PROVIDERS: PCP Family Medicine; Visit Provider Family Medicine | DX: G47.33 Obstructive sleep apnea (adult) (pediatric) (principal); G47.36 Sleep related hypoventilation in conditions classified elsewhere | CPT/HCPCS: G0399 ==

== ENCOUNTER 2024-09-18 14:01 | Outpatient (CLI) | payer MEDICARE, SELFPAY | END 2024-09-18 14:02 | disposition home or self-care (01) | PROVIDERS: PCP Family Medicine; Visit Provider Internal Medicine Interventional Cardiology | DX: C61 Malignant neoplasm of prostate (principal) | CPT/HCPCS: 36415; 84153 ==